=== PATIENT | female | born 1980 | race American Indian/Alaskan Native ===

== ENCOUNTER 2016-07-28 03:14 | Emergency (ER) | payer SELFPAY ==
[2016-07-28 04:20] LABS: Basophils % (Auto) 0.4 % (0.0-1.8); Eosinophils % (Auto) 0.3 % (0.0-4.3); Hematocrit 31.3 % (30.3-42.9); Hemoglobin 9.6 gm/dl (10.1-14.3); Mean Corpuscular HGB Conc 31 % (30-34); Platelet Count 386 K/mm3 (140-440); Red Blood Count 4.93 M/mm3 (3.65-5.03); Red Cell Distribution Width 19.7 % (13.2-15.2); White Blood Count 10.5 K/mm3 (4.5-11.0)
[2016-07-28 04:21] LABS: Mean Corpuscular Hemoglobin 20 pg (28-32); Mean Corpuscular Volume 64 fl (79-97)
[2016-07-28 04:28] LABS: INR 0.94 (0.87-1.13)
[2016-07-28 04:34] LABS: Anion Gap 17 mmol/L; BUN/Creatinine Ratio 14.44; Blood Urea Nitrogen 13 mg/dL (7-17); Calcium 8.9 mg/dL (8.4-10.2); Carbon Dioxide 24 mmol/L (22-30); Chloride 103.9 mmol/L (98-107); Glucose 103 mg/dL (65-100); Potassium 3.7 mmol/L (3.6-5.0); Sodium 141 mmol/L (137-145)
[2016-07-28 04:59] VITALS: BP 125/86
--- NOTE | 2016-07-28 09:23 | XRay Report ---
Chest 2 views: History shortness of breath. Findings: There is large ill-defined opacity noted in the lingula of left lung. Normal CP angles. Trachea is midline. Normal cardiomediastinal silhouette. Impression: Large opacity in lingula left lung suggestive of pneumonitis.
== END 2016-07-28 04:00 | disposition left against medical advice (07) ==
LOC: ED 03:14
DX: R07.2 Precordial pain (principal); R05 Cough; Z53.21 Procedure and treatment not carried out due to patient leaving prior to being seen by health care provider
CPT/HCPCS: 36415; 71020; 80048; 84484; 84703; 85025; 85610; 85730; 93005; 93010